=== PATIENT | male | born 1985 | race Two or more races ===

== ENCOUNTER 2022-01-10 10:38 | Day surgery (SDC) | payer OTHER ==
[~2022-01-10] VITALS: Ht 188 cm; Wt 108.9 kg
[2022-01-10] MEDS ORDERED: PERCOCET 5-3251 EACH PO (14:13)
[2022-01-10] MEDS ORDERED: TAMS0.4C PO (14:13)
[2022-01-10] MEDS ORDERED: LEVOFLOXACIN500 MG PO (14:14)
== END 2022-01-10 17:00 | disposition home or self-care (01) ==
LOC: CIR.AMB 10:38
PROVIDERS: ATTEND Surgery
DX: N20.1 Calculus of ureter (principal); Z20.822 Contact with and (suspected) exposure to COVID-19